=== PATIENT | male | born 1955 | race Caucasian/White ===

== ENCOUNTER 2024-01-20 08:35 | Day surgery (SDC) | payer MEDICARE ==
[~2024-01-20] VITALS: Ht 182.9 cm; Wt 102.5 kg
[~2024-01-20 08:35] MED LIST: LR 1,000 ML IV SCH; MIDAZOLAM INJ 2MG/2ML VIAL As Ordered ONE; fentaNYL 100 MCG/2 ML INJECTION As Ordered ONE
[2024-01-20] MEDS: ATROPINE SULFATE 1% OPHTH SOLN 2ML BTL OD SCH (10:17)
[2024-01-20] MEDS: FLURBIPROFEN 0.03% OPHTH SOLN 2.5 ML OD SCH (10:18)
[2024-01-20] MEDS: PHENYLEPHRINE 2.5% OPHTH SOL 2ML OD SCH (10:18)
[2024-01-20] MEDS: TETRACAINE 0.5% OPHTH SOLN 4ML OD SCH (10:18)
[2024-01-20] MEDS: LIDOCAINE 1% SDV 5ML VIAL As Ordered ONE (12:37)
[2024-01-20] MEDS: CEFUROXIME 1MG/0.1ML INTRACAMERAL INJ As Ordered ONE (12:38)
[2024-01-20 13:24] VITALS: BP 134/73; TEMP 98.1; O2SAT 96
== END 2024-01-20 14:05 | disposition home or self-care (01) ==
LOC: M SDC 08:35
PROVIDERS: ATTEND Ophthalmology
DX: H25.11 Age-related nuclear cataract, right eye (principal)
CPT/HCPCS: 66984; J0697; J2250; J3010; V2632